=== PATIENT | female | born 1995 | race Native Hawaiian/Other Pacific Islander ===

== ENCOUNTER 2019-01-01 23:27 | Outpatient (CLI) | payer OTHER ==
[2019-01-02 00:51] VITALS: BP 115/78
== END 2019-01-02 01:37 | disposition home or self-care (01) ==
LOC: TRG 23:27
PROVIDERS: ATTEND Obstetrics & Gynecology
DX: O47.1 False labor at or after 37 completed weeks of gestation (principal); Z3A.38 38 weeks gestation of pregnancy
CPT/HCPCS: 59025

== ENCOUNTER 2019-01-18 23:34 | Inpatient (IN) | payer OTHER ==
[2019-01-19] MEDS ORDERED: LACTATED RINGERS 1,000 ML ONE (00:27)
[2019-01-19 01:59] LABS: Hematocrit 35.8 % (30.3-42.9); Hemoglobin 12.6 gm/dl (10.1-14.3); Mean Corpuscular HGB Conc 35 % (30-34); Mean Corpuscular Volume 90 fl (79-97); Platelet Count 218 K/mm3 (140-440); Red Cell Distribution Width 12.7 % (13.2-15.2)
--- NOTE | 2019-01-19 02:48 | Ultrasound Report ---
OB ultrasound. 01/19/2019. HISTORY: Advanced initiation. OB ultrasound was performed. Biophysical profile is 8 of 8. A single viable intrauterine is in the cephalic position. heart tones are 168 bpm. Am niotic fluid index is 24.3. IMPRESSION: 1. Biophysical profile lobe. 2. Amniotic fluid index is 24.3 cm. Signer Name: Darrick Curtis MD Signed: 01/19/2019 2:44 AM Workstation Name: [id number]
[2019-01-19] MEDS: CERVIDIL VG ONE ×2 (03:20→03:27)
[2019-01-19] MEDS: LACTATED RINGERS 1,000 ML IV SCH ×2 (03:21→05:28)
[2019-01-19] MEDS ORDERED: PITOCin/NS 20 UNIT/1000ML DRIP 40,000 MILLIUNITS/2,000 ML BAG IV ONE (07:28)
[2019-01-19] MEDS ORDERED: STADOL IV PRN (08:04)
--- NOTE | 2019-01-19 08:48 | History and Physical Report ---
History of Present Illness Date of examination: 01/19/19 Date of admission: 01/19/19 01:48 Chief complaint: Decreased movement History of present illness: Pt is a 23yo HF EDC 01/10/19; EGA 41 1/7 weeks presented to L&D complaining of decreased movement last night. BPP was 8/8 and CHERIE 24.3, but she had recurrent variable decelerations so she was admitted for induction of labor. She received care at [facility] since 17 weeks and course has been unremarkable. records are available and GBS is Negative. Past History Past Medical History: no pertinent history Past Surgical History: no surgical history Family/Genetic History: none Social history: no significant social history, single - Obstetrical History Expected Date of Delivery: 01/10/19 Actual Gestation: 41 Week(s) 2 Day(s) : 1 Medications and Allergies Allergies Allergy/AdvReac Type Severity Reaction Status Date / Time No Known Allergies Allergy Verified 01/02/19 00:48 Active Meds: Active Medications Butorphanol Tartrate (Stadol) 2 mg IV Q2H PRN PRN Reason: Labor Pain Last Admin: 01/19/19 08:14 Dose: 2 mg Documented by: Ephedrine Sulfate (Ephedrine Sulfate) 10 mg IV Q2M PRN PRN Reason: Hypotension Ephedrine Sulfate (Ephedrine Sulfate) 10 mg IV Q2M PRN PRN Reason: Hypotension Lactated Ringer's (Lactated Ringers) 1,000 mls @ 125 mls/hr IV DIRECT SABINE Last Admin: 01/19/19 05:28 Dose: 125 mls/hr Documented by: Oxytocin/Sodium Chloride (Pitocin/Ns 20 Unit/1000ml Drip) 20 units in 1,000 mls @ 125 mls/hr IV DIRECT SABINE Oxytocin/Sodium Chloride (Pitocin/Ns 30 Unit/500ml) 30 units in 500 mls @ 1 mls/hr IV TITR SABINE; Protocol Lactated Ringer's (Lactated Ringers) 1,000 mls @ 125 mls/hr IV DIRECT SABINE Ampicillin Sodium (Ampicillin/Ns 1 Gm/50 Ml) 1 gm in 50 mls @ 100 mls/hr IV Q4HR SABINE; Protocol Ampicillin Sodium (Ampicillin/Ns 2 Gm/100 Ml) 2 gm in 100 mls @ 100 mls/hr IV ONCE ONE; Protocol Stop: 01/19/19 09:39 Lidocaine (Xylocaine 2%) 20 ml INFILTRATI ONCE ONE Stop: 01/19/19 08:41 Mineral Oil (Mineral Oil) 30 ml PO QHS PRN PRN Reason: Constipation Ondansetron HCl (Zofran) 4 mg IV Q8H PRN PRN Reason: Nausea And Vomiting Terbutaline Sulfate (Brethine) 0.25 mg SUB-Q ONCE PRN PRN Reason: Hyperstimulation/Hypertonicity Terbutaline Sulfate (Brethine) 0.25 mg IVP ONCE PRN PRN Reason: Hyperstimulation/Hypertonicity Review of Systems All systems: negative - Vital Signs Vital signs: Vital Signs Pulse BP 102 H 121/77 01/18/19 23:45 01/18/19 23:45 Temp Pulse Resp BP Pulse Ox 97.1 F L 90 19 109/67 01/19/19 07:13 01/19/19 08:18 01/19/19 07:13 01/19/19 08:18 - Physical Exam Breasts: Positive: deferred Cardiovascular: Regular rate Lungs: Positive: Clear to auscultation Abdomen: Positive: normal appearance Genitourinary (Female): Positive: normal external genitalia Vagina: Positive: normal moisture Uterus: Positive: enlarged Extremities: Positive: normal - Obstetrical FHR: category 1 Uterine Contraction Monitor Mode: External Cervical Dilatation: 5 (per nurse) Cervical Effacement Percentage: 90 (per nurse) station: -1 Uterine Contraction Pattern: Regular Uterine Tone Measurement Phase: Contraction Uterine Contraction Intensity: Moderate Results Result Diagrams: 01/19/19 01:35 Abnormal lab results 01/19/19 Range/Units 01:35 MCHC 35 H (30-34) % RDW 12.7 L (13.2-15.2) % All other labs normal. Ultrasound: report reviewed Assessment and Plan - Patient Problems (1) 41 weeks gestation of Onset Date: 01/19/19 Current Visit: Yes Status: Acute Plan to address problem: A: IUP @ 41 2/7 weeks Polyhydramnios P: Admit to L&D for cervidil/pitocin induction of labor
[2019-01-19] MEDS ORDERED: BRETHINE SUB-Q PRN (09:00)
[2019-01-19] MEDS ORDERED: LACTATED RINGERS 1,000 ML IV SCH ×2 (09:00→12:00)
[2019-01-19] MEDS ORDERED: ZOFRAN IV PRN ×2 (09:00→13:46)
[2019-01-19] MEDS ORDERED: PITOCin/NS 30 UNIT/500ML 30 UNITS/500 ML BAG IV SCH (09:00)
[2019-01-19] MEDS ORDERED: BRETHINE IVP PRN (09:00)
[2019-01-19] MEDS ORDERED: MINERAL OIL PO PRN (09:00)
[2019-01-19] MEDS ORDERED: XYLOCAINE 2% INFILTRATI NR (09:00)
[2019-01-19] MEDS ORDERED: PITOCin/NS 20 UNIT/1000ML DRIP 20 UNITS/1,000 ML BAG IV SCH ×3 (09:00→14:00)
[2019-01-19] MEDS ORDERED: AMPICILLIN/NS 2 GM/100 ML 2 GM/100 ML BAG IV ONE (09:30)
[2019-01-19] MEDS ORDERED: ANCEF/STERILE WATER 2 GM/20 ML 2 GM/20 ML SYRINGE IV NR (12:00)
[2019-01-19] MEDS ORDERED: REGLAN IV NR (12:00)
[2019-01-19] MEDS ORDERED: PEPCID IV NR (12:00)
[2019-01-19] MEDS ORDERED: BICITRA PO NR (12:00)
[2019-01-19] MEDS ORDERED: BICITRA ONE (12:02)
[2019-01-19] MEDS ORDERED: PEPCID ONE (12:03)
[2019-01-19] MEDS ORDERED: REGLAN ONE (12:05)
[2019-01-19] MEDS ORDERED: PEPCID IV ONE (12:05)
[2019-01-19] MEDS ORDERED: ANCEF/STERILE WATER 2 GM/20 ML 2 GM/20 ML SYRINGE IV ONE (12:05)
[2019-01-19] MEDS ORDERED: ZOFRAN ONE (12:06)
[2019-01-19] MEDS ORDERED: MARCAINE 0.5% INFILTRATI ONE (12:06)
[2019-01-19] MEDS ORDERED: DEXMEDETOMIDINE IV ONE (12:06)
--- NOTE | 2019-01-19 12:13 | Anesthesia Consultation ---
Anesthesia Consult and Med Hx Date of service: 01/19/19 - Airway Anesthetic Teeth Evaluation: Good ROM Head & Neck: Adequate Mental/Hyoid Distance: Adequate Mallampati Class: Class II Intubation Access Assessment: Probably Good - Pulmonary Exam CTA: Yes - Cardiac Exam Cardiac Exam: RRR - Pre-Operative Health Status ASA Pre-Surgery Classification: ASA2, Emergency Proposed Anesthetic Plan: Spinal - Pulmonary Hx Asthma: No - Cardiovascular System Hx Hypertension: No - Central Nervous System Hx Seizures: No Hx Psychiatric Problems: No - Endocrine Hx Renal Disease: No Hx Hypothyroidism: No Hx Hyperthyroidism: No - Hematic Hx Anemia: No Hx Sickle Cell Disease: No - Other Systems Hx Alcohol Use: No
--- NOTE | 2019-01-19 12:14 | Anesthesia Day of Surgery ---
Anesthesia Day of Surgery - Day of Surgery Patient Examined: Yes Patient H&P Reviewed: Yes Patient is NPO: Yes
[2019-01-19] MEDS ORDERED: NACL 0.9% IR ONE (12:33)
[2019-01-19] MEDS ORDERED: WATER FOR IRRIG STERILE IR ONE (12:33)
[2019-01-19] MEDS ORDERED: NEO SYNEPHRINE ONE (13:10)
[2019-01-19] MEDS ORDERED: TYLENOL PO PRN (13:30)
[2019-01-19] MEDS ORDERED: LANSINOH TP PRN (13:30)
[2019-01-19] MEDS ORDERED: NORCO 5/325 PO PRN (13:30)
[2019-01-19] MEDS ORDERED: MYLICON PO PRN (13:30)
[2019-01-19] MEDS ORDERED: SENOKOT PO PRN (13:30)
[2019-01-19] MEDS ORDERED: TUCKS PAD TP PRN (13:30)
[2019-01-19] MEDS ORDERED: NARCAN 0.4 MG/1 ML IV PRN ×2 (13:30→13:46)
[2019-01-19] MEDS ORDERED: MILK OF MAGNESIA PO PRN (13:30)
[2019-01-19] MEDS: TORADOL IV PRN ×2 (13:35→22:14)
[2019-01-19] MEDS ORDERED: TORADOL ONE (13:35)
--- NOTE | 2019-01-19 13:44 | Operative Report ---
Operative Report Operative Report: Date of procedure: 01/19/2019 Pre-operative diagnosis: 1. Intrauterine at 41-2/7 weeks 2. Polyh ydramnios 3. Non-reassuring surveillance 4. Meconium fluid Post-operative diagnosis: Same Procedure name(s): Primary low transverse section Surgeon: Zack Domingo MD Car Seat Coverer: None Anesthesia: Spinal anesthesia by Mikal Cho CRNA EBL: 500 mL's Findings: A 4158 g female infant Apgars 8 at 1 minute 8 at 5 minutes. 2+ meconium fluid. Normal uterus. Normal tubes and ovaries bilaterally. Procedure: After the patient was prepped and draped in usual sterile fashion, and after satisfactory level of epidural anesthesia was obtained, the skin knife was used to make a transverse skin incision. The incision was excised down to layer of the fascia, which was nicked in the midline and extended laterally using the Bovie cautery. The rectus muscles were dissected off the rectus fascia both superiorly and inferiorly. The rectus bellies in the midline, and the peritoneum was entered under direct visualization. The peritoneal incision was extended superiorly and inferiorly. A bladder flap was created and the bladder blade was then placed. The uterus was scored in a curvilinear linear fashion, entered in the midline revealing 2+ meconium amniot ic fluid. The infant's head was delivered onto the surgical field with the aid of a vacuum, and the oropharynx and nasopharynx were bulb suctioned. The rest of the infant's body was delivered, cord was doubly clamped and cut and the was handed to the waiting respiratory team. Cord blood was then obtained. The placenta was manually removed from the uterus, and the uterus removed from its normal anatomical position. After gentle uterine lavage, the incision was inspected and found to be without extensions. It was then closed in 2 layers using 0 Vicryl suture in a running interlocking fashion, the second layer imbricating the first. After good hemostasis was achieved, copious amounts or irrigation was performed, and the gutters were suctioned free of blood and blood clots. The Tisseel sealant was sprayed across the uterine incision, and excellent hemostasis was assured. The uterus was then returned to its normal anatomical position, and after excellent hemostasis assured, the peritoneum was re-approximated using 3-0 Vicryl suture in a running interlocking fashion, and then the rectus muscles were re-approximated using 3-0 Vicryl suture in a [id number] configuration. The fascia was then re-approximated using 0 Vicryl suture in running interlocking fashion. The subcutaneous layer was made hemostatic using Bovie cautery, and the skin edges re-approximated using 4-0 Vicryl suture in a sub-cuticular fashion. Patient tolerated the procedure well was transported to recovery in stable condition.
--- NOTE | 2019-01-19 13:45 | Post Anesthesia Evaluation ---
- Post Anesthesia Evaluation Patient Participated: Yes Airway Patent: Yes Stable Respiratory Function: Yes Nausea/Vomiting: No Temp > 96.8F: Yes Pain Manageable: Yes Adequeate Hydration: Yes Anesthesia Complications: No Block Receding Appropriately: Yes
[2019-01-19] MEDS ORDERED: PHENERGAN PO PRN (13:46)
[2019-01-19] MEDS ORDERED: PHENERGAN PR PRN (13:46)
[2019-01-19] MEDS ORDERED: NUBAIN IV PRN (13:46)
[2019-01-19] MEDS ORDERED: SODIUM CHLORIDE FLUSH SYRINGE 10 ML IV NR (14:00)
[2019-01-19] MEDS ORDERED: AMPICILLIN/NS 1 GM/50 ML 1 GM/50 ML BAG IV SCH (14:00)
[2019-01-19] MEDS ORDERED: SODIUM CHLORIDE FLUSH SYRINGE 10 ML IV SCH (14:00)
[2019-01-19] MEDS: D5LR 1,000 ML IV SCH (22:05)
[2019-01-19] MEDS: ANCEF/NS 1 GM/50 ML 1 GM/50 ML BAG IV SCH (22:06)
[2019-01-20] MEDS: PERCOCET 5/325 PO PRN ×3 (02:30→17:56)
[2019-01-20] MEDS: D5LR 1,000 ML IV SCH (05:12)
[2019-01-20 05:59] LABS: Hematocrit 25.3 % (30.3-42.9); Hemoglobin 8.5 gm/dl (10.1-14.3)
[2019-01-20] MEDS ORDERED: BOOSTRIX IM ONE (06:00)
--- NOTE | 2019-01-20 08:01 | Progress Note ---
Assessment and Plan - Patient Problems (1) 41 weeks gestation of Onset Date: 01/19/19 Current Visit: Yes Status: Resolved (2) Status post section Onset Date: 01/20/19 Current Visit: Yes Status: Resolved Plan to address problem: A: S/P C section - POD #1 Doing well Asymptomatic anemia - stable P: Continue RPOC Anticipate discharge in 24-48hrs (3) Acute blood loss anemia Onset Date: 01/20/19 Current Visit: Yes Status: Resolved Subjective - Subjective Date of service: 01/20/19 Principal diagnosis: s/p C Section - POD #1 Interval history: Pt is feeling well without complaints. Bleeding has improved. Patient reports: appetite normal, voiding normally, pain well controlled, ambulating normally, no dizzy ambulation, no flatus, no nauseated : doing well, nursing well, bottle feeding Objective - Vital Signs Latest vital signs: Vital Signs Temp Pulse Resp BP Pulse Ox 01/20/19 05:04 98.0 F 87 18 102/67 97 01/20/19 00:05 98.4 F 109 H 18 98/54 97 01/19/19 20:35 98.9 F 105 H 18 105/66 99 01/19/19 14:58 98.3 F 73 16 96/51 96 01/19/19 14:35 99.1 F 01/19/19 14:34 70 17 87/49 97 01/19/19 14:15 68 17 87/45 97 01/19/19 14:00 66 16 87/46 98 01/19/19 13:45 74 16 80/44 98 01/19/19 13:40 88 16 79/35 98 01/19/19 13:35 100 H 19 83/35 100 01/19/19 13:31 99.1 F 98 H 19 83/30 01/19/19 12:27 97.6 F 18 01/19/19 11:39 86 114/73 01/19/19 11:08 88 97/60 01/19/19 10:39 105 H 105/65 01/19/19 10:18 88 102/63 01/19/19 09:20 93 H 102/74 01/19/19 08:18 90 109/67 Intake and Output 01/19/19 01/20/19 01/20/19 22:59 06:59 14:59 Intake Total 1120 889.583 Output Total 600 1300 Balance 520 -410.417 Intake: IV 889.583 D5lr 1,000 ml @ 125 mls/ 889.583 hr IV DIRECT SABINE Rx#: [id number] Oral 1120 Output: Urine 600 1300 Indwelling Catheter 600 650 Uretheral (Em) 650 Other: Total, Intake Amount 120 Total, Output Amount 150 650 - Exam Breasts: Present: deferred Abdomen: Present: normal appearance, soft Uterus: Present: normal, firm, fundal height below umbilicus Extremities: Present: normal Incision: Present: normal, dry, intact, dressed - Labs Labs: Abnormal lab results 01/20/19 Range/Units 05:32 Hgb 8.5 L D (10.1-14.3) gm/dl Hct 25.3 L D (30.3-42.9) % Laboratory Tests 01/19/19 01/19/19 01/19/19 01:35 01:35 10:02 WBC 10.6 RBC 4.00 Hgb 12.6 Hct 35.8 MCV 90 MCH 32 MCHC 35 H RDW 12.7 L Plt Count 218 RPR Nonreactive Blood Type O POSITIVE Antibody Screen Negative 01/20/19 05:32 WBC RBC Hgb 8.5 L D Hct 25.3 L D MCV MCH MCHC RDW Plt Count RPR Blood Type Antibody Screen
[2019-01-20] MEDS: ANCEF/NS 1 GM/50 ML 1 GM/50 ML BAG IV SCH (08:39)
[2019-01-20] MEDS: TORADOL IV PRN (08:59)
[2019-01-20] MEDS: FEOSOL PO SCH (10:29)
[2019-01-20] MEDS: PRENATAL VITAMIN PO SCH (10:29)
[2019-01-20] MEDS ORDERED: M-M-R II VACCINE SUB-Q ONE (13:34)
[2019-01-20] MEDS: IBUPROFEN PO PRN (15:12)
[2019-01-21] MEDS: PERCOCET 5/325 PO PRN ×2 (03:42→13:34)
[2019-01-21] MEDS: FEOSOL PO SCH (10:01)
[2019-01-21] MEDS: PRENATAL VITAMIN PO SCH (10:01)
--- NOTE | 2019-01-21 10:14 | Progress Note ---
Assessment and Plan - Patient Problems (1) 41 weeks gestation of Onset Date: 01/19/19 Current Visit: Yes Status: Resolved (2) Status post section Onset Date: 01/20/19 Current Visit: Yes Status: Resolved Plan to address problem: A: S/P C section - POD #2 Doing well Asymptomatic anemia - stable P: May go home tomorrow. (3) Acute blood loss anemia Onset Date: 01/20/19 Current Visit: Yes Status: Resolved Subjective - Subjective Date of service: 01/21/19 Principal diagnosis: s/p C Section - POD #2 Interval history: Pt is feeling well without complaints. She is tolerating a reg diet without nausea or vomiting, ambulating and voiding without difficulty. Patient reports: appetite normal, voiding normally, pain well controlled, flatus, ambulating normally, no dizzy ambulation, no nauseated : doing well, nursing well, bottle feeding Objective - Vital Signs Latest vital signs: Vital Signs Temp Pulse Resp BP BP Pulse Ox 01/21/19 07:55 98.3 F 108 H 18 107/73 97 01/21/19 00:00 98.4 F 74 16 101/64 01/20/19 16:54 98 F 80 20 96/65 01/20/19 13:32 97.6 F 86 16 104/72 99 Intake and Output 01/20/19 01/21/19 01/21/19 22:59 06:59 14:59 Intake Total 240 300 Output Total 600 Balance -360 300 Intake: Oral 240 Intake, Free Water 300 Output: Urine 600 Void 600 Other: Total, Intake Amount 240 Total, Output Amount 600 # Voids Void 1 - Exam Breasts: Present: deferred Abdomen: Present: normal appearance, soft Uterus: Present: normal, firm, fundal height below umbilicus Extremities: Present: normal Incision: Present: normal, dry, intact
[2019-01-22] MEDS: IBUPROFEN PO PRN ×2 (00:11→09:06)
[2019-01-22 08:29] VITALS: BP 99/58
--- NOTE | 2019-01-22 08:45 | Progress Note ---
Assessment and Plan - Patient Problems (1) 41 weeks gestation of Onset Date: 01/19/19 Current Visit: Yes Status: Resolved (2) Status post section Onset Date: 01/20/19 Current Visit: Yes Status: Resolved Plan to address problem: A: S/P C section - POD #3 Doing well Asymptomatic anemia - stable P: May go home today. (3) Acute blood loss anemia Onset Date: 01/20/19 Current Visit: Yes Status: Resolved Subjective - Subjective Date of service: 01/22/19 Principal diagnosis: s/p C Section - POD #3 Interval history: Pt is feeling well without complaints. She is tolerating a reg diet without nausea or vomiting, ambulating and voiding without difficulty. Patient reports: appetite normal, voiding normally, pain well controlled, flatus, ambulating normally, no dizzy ambulation, no nauseated [place]: doing well, nursing well, bottle feeding Objective - Vital Signs Latest vital signs: Vital Signs Temp Pulse Resp BP BP Pulse Ox 01/22/19 07:54 97.5 F L 78 18 99/58 01/21/19 23:28 99.1 F 101 H 18 105/64 97 01/21/19 16:31 98.3 F 82 18 100/69 98 Intake and Output 01/21/19 01/22/19 01/22/19 22:59 06:59 14:59 Intake Total 480 240 480 Balance 480 240 480 Intake: Oral 240 240 480 Tube Feeding 240 Other: Total, Intake Amount 480 120 480 # Voids Void 1 1 - Exam Abdomen: Present: normal appearance, soft Uterus: Present: normal, firm, fundal height below umbilicus Extremities: Present: normal Incision: Present: normal, dry, intact
--- NOTE | 2019-01-22 08:51 | Discharge Summary ---
Providers - Providers Date of Admission: 01/19/19 01:48 Date of discharge: 01/22/19 Attending physician: ROBIN LICEA Primary care physician: ROBIN LICEA Hospitalization Reason for admission: induction of labor, IUP at term Delivery: Procedure: section, primary low transverse Episiotomy: none Laceration: none Incision: normal, dry, intact Other procedures: none complications: none baby: female Hospital course: Pt is a 23yo HF EDC 01/10/19; EGA 41 06/02 weeks who presented to L&D complaining of decreased movement. BPP was 8/8 and CHERIE 24.3, but she had recurrent variable decelerations so she was admitted for induction of labor. Her monitoring became more non-reassuring and so she was delivered by an uncomplicated C Section. Her post operative course was unremarkable and by POD #2 she was tolerating a reg diet without nausea or vomiting, ambulating and voiding without difficulty. She was therefore discharged to home on POD #3 in stable condition. Condition at discharge: Good Disposition: DC-01 TO HOME OR SELFCARE - Discharge Diagnoses (1) 41 weeks gestation of Status: Resolved (2) Status post section Status: Resolved (3) Acute blood loss anemia Status: Resolved Plan - Discharge Medications Prescriptions: Ferrous Sulfate [Feosol 325 MG tab] 325 mg PO BID #60 tablet Ibuprofen [Motrin 800 MG tab] 800 mg PO Q6H PRN #30 tablet PRN Reason: Pain, Mild (1-3) oxyCODONE /ACETAMINOPHEN [Percocet 5/325 mg] 1 tab PO Q6H PRN #30 tablet PRN Reason: Pain, Moderate (4-6) Vit-Fe Fumar-FA [ Vitamin] 1 each PO QDAY #30 tablet - Provider Discharge Summary Activity: routine, no sex for 6 weeks, no heavy lifting 4 weeks, no strenuous exercise Diet: routine Instructions: routine Additional instructions: [] Smoking cessation referral if applicable(refer to patient education folder for contact #) [] Refer to [facility] Booklet Call your doctor immediately for: * Fever > 100.5 * Heavy vaginal bleeding ( >1 pad per hour) * Severe persistent headache * Shortness of breath * Reddened, hot, painful area to leg or breast * Drainage or odor from incision. * Keep incision clean and dry at all times and follow doctor's instructions regarding bathing/showering - Follow up plan Follow up: ROBIN LICEA MD [Primary Care Provider] - 14 Days
[2019-01-22] MEDS: PRENATAL VITAMIN PO SCH (09:07)
[2019-01-22] MEDS: FEOSOL PO SCH (09:07)
== END 2019-01-22 10:20 | disposition home or self-care (01) | DRG 765 ==
LOC: TRG 23:34 → LD 01-19 01:48 → OB 01-19 16:23
PROVIDERS: ADMIT Obstetrics & Gynecology; ATTEND Obstetrics & Gynecology
PROC: 10D00Z1 Extraction of Products of Conception, Low, Open Approach (ICD-10-PCS; principal; 2019-01-19)
PROC: 3E0234Z Introduction of Serum, Toxoid and Vaccine into Muscle, Percutaneous Approach (ICD-10-PCS; 2019-01-20)
DX: O76 Abnormality in fetal heart rate and rhythm complicating labor and delivery (principal); D62 Acute posthemorrhagic anemia; O99.02 Anemia complicating childbirth; O40.3XX0 Polyhydramnios, third trimester, not applicable or unspecified; O77.0 Labor and delivery complicated by meconium in amniotic fluid; Z3A.41 41 weeks gestation of pregnancy; Z37.0 Single live birth; Z23 Encounter for immunization
CPT/HCPCS: 36415; 76815; 76819; 85014; 85018; 85027; 86592; 86850; 86900; 86901; 88307; G0378; C9250; J0595; J0690; J1885; J2370; J2405; J2590; J2765; J3490; J7120; J7121